=== PATIENT | male | born 1980 | race Caucasian/White ===

== ENCOUNTER 2024-10-24 18:09 | Emergency (ER) | payer BC, OTHER, SELFPAY ==
[2024-10-24 18:10] VITALS: BMI 44.3
[2024-10-24 18:54] VITALS: BP 154/79; PULSE 74; RESP 18; TEMP 36.9; O2SAT 97
--- NOTE | 2024-10-24 19:33 | EDNOTE_ITS ---
ED Wound/Laceration-RME/HPI General Chief Complaint: Hand/Wrist Problems Stated Complaint: I NEED A TETANUS SHOT Time Seen by Provider: 10/24/24 19:03 Arrival date/time: 10/24/24 18:09 43M with history of HTN presents to ED with L hand pain after he accidentally poked himself with a screwdriver. Patient has not had a tetanus shot in the past 5 years. Limitations: no limitations Related Data Previous Rx's ?Medication ?Instructions ?Recorded amoxicillin 875 mg-potassium 1 tab PO BID 5 days #10 t abs 10/24/24 clavulanate 125 mg tablet Allergies Allergy/AdvReac Type Severity Reaction Status Date / Time No Known Allergies Allergy Verified 10/24/24 18:10 Review of Systems Review of Systems Systems Reviewed: All systems reviewed, normal except as documented Constitutional Constitutional: Reports system reviewed and no additional complaints, except as documented, Denies fever(s) and Denies headache(s) ENT Ears, Nose, Mouth, and Throat: Denies disequilibrium and Denies headache(s) Cardiovascular Cardiovascular: Reports system reviewed and no additional complaints, except as documented, Denies chest pain and Denies dyspnea Respiratory Respiratory: Reports system reviewed and no additional complaints, except as documented, Denies cough and Denies dyspnea Gastrointestinal Gastrointestinal: Reports system reviewed and no additional complaints, except as documented, Denies abdominal pain, Denies nausea and Denies vomiting Integumentary/Breasts Skin/Breast: Reports as per HPI and Reports skin pain Neurologic Neurologic: Reports system reviewed and no additional complaints, except as documented, Denies confusion, Denies disequilibrium and Denies headache(s) Psychiatric Psychiatric: Denies confusion Past Medical History Past Medical History CARDIAC: Positive Cardiac Disorders and Hypertension; Negative Congestive Heart Failure RESPIRATORY: Negative Chronic Obstructive Pulmonary Disease (COPD) or Asthma GENITOURINARY: Negative Renal Disease ENDOCRINE: Negative Diabetes Mellitus Type 1 or Diabetes Mellitus Type 2 HEMATOLOGIC: Negative Sickle Cell Disease Social History SMOKING STATUS: Never smoker SUBSTANCE USE: does not use ED Exam General Limitations: Present no limitations General appearance: Present alert and in no apparent distress Head Head exam: Present atraumatic Eye Eye exam: Present normal appearance, PERRL and EOMI ENT ENT exam: Present normal exam, normal oropharynx and mucous membranes moist Neck Neck exam: Present normal inspection, full ROM and trachea midline Chest Chest inspection: Present normal inspection and symmetric chest wall rise Respiratory Respiratory exam: Present normal lung sounds bilaterally Cardiovascular Cardiovascular exam: Present regular rate, normal rhythm and normal heart sounds Abdominal Exam Abdominal exam: Present soft and normal bowel sounds Extremities Exam Extremities exam: Present full ROM Expanded Upper Extremity Exam Hand exam: Present full ROM and other (L puncture wound on palm) Back Exam Back exam: Present normal inspection and full ROM Neurological Exam Neurological exam: Present alert, oriented X3 and CN II-XII intact Psychiatric Psychiatric exam: Present normal affect and normal mood Skin Skin exam: Present warm, dry, intact and normal color Course Quality Measures none Orders Category Date Time Status Wound Care NOW Care 10/24/24 19:03 Active Amoxicillin/Pot Clav 875 [Augmentin 875] Med 10/24/24 19:56 Discontinued 1 tab PO X1 ONE Naproxen [Naprosyn] Med 10/24/24 19:56 Discontinued 500 mg PO X1 ONE Tet,Diphth,Pertuss(Acell)-Tdap [Boostrix Vacc] Med 10/24/24 19:03 Discontinued 0.5 ml IMI .ONCE ONE Vital Signs Vital signs: Vital Signs Temperature 98.4 F 10/24/24 18:54 Pulse Rate 74 10/24/24 18:54 Respiratory Rate 18 10/24/24 18:54 Blood Pressure 154/79 H 10/24/24 18:54 Pulse Oximetry (%) 97 10/24/24 18:54 Oxygen Delivery Method Room Air 10/24/24 18:54 O2 at 97% on RA and WNLs Wound / Laceration MDM Narrative MDM Narrative:: 43M with history of HTN presents to ED with L hand pain after he accidentally poked himself with a screwdriver. Patient has not had a tetanus shot in the past 5 years. Physical exam reveals puncture wound on L palm. ROM intact. Patient is afebrile, calm, and alert. Wound cleaned/irrigated and bandaged. Tdap and ABX prophylaxis given. Patient data External records reviewed:: [facility] previous records Clinical information provided by:: patient Social determinants that could affect healthcare access:: none Patient has the following chronic illnesses:: HTN How is presenting disease/condition affected by chronic disease/condition?: uneffected by Evaluation data The following diagnostics were reviewed and interpreted by me:: other (specify) (none) Lab and/or radiology exams considered but not ordered:: not ordered Interpretation Summary: n/a Medications / Prescriptions Medications or Prescriptions considered but not ordered:: ordered Medication administrations:: Medication Administration History Discontinued Medications Amoxicillin/Clavulanate Potassium (Amoxicillin/Pot Clav 875 Tablet) 1 tab PO X1 ONE Stop: 10/24/24 19:57 Last Admin: 10/24/24 20:03 Dose: 1 tab Documented By: Diphtheria/Tetanus/Acell Pertussis (Diphth,Pertuss(Acell),Tet Vac 0.5 Ml Syr) 0.5 ml IMi .ONCE ONE Stop: 10/24/24 19:04 Last Admin: 10/24/24 20:03 Dose: 0.5 ml Documented By: Naproxen (Naproxen 250 Mg Tablet) 500 mg PO X1 ONE Stop: 10/24/24 19:57 Last Admin: 10/24/24 20:03 Dose: 500 mg Documented By: above Consultations Consultation(s) initiated? (list below): No Diagnosis Wound Differential Diagnosis: laceration, abrasion, avulsion of skin and other (puncture wound) Most likely diagnosis given after review of the tests above:: puncture wound Admission Indicated Admission indicated?: not indicated Admission Request Was there a request for admission?: No Disposition Plan Disposition Plan: Discharge Discharge Attestation Discharge Attestation: The patient and all family members were given an opportunity to ask questions and understood the discharge instructions. Discharge instructions specifically effects, indications for sooner follow up or return to the emergency department, and the expected course of current diagnosis. Patient condition: Stable Discharge Plan Plan Patient Disposition: HOME (Self Care) Disposition Comment: Stable Prescriptions/Referrals Prescriptions/Med Rec: New amoxicillin-pot clavulanate 875-125 mg tablet 1 tab PO BID 5 Days Qty: 10 0RF Problem List Clinical Impression: Puncture wound Patient/Caregiver Discharge Instructions Additional Instructions: Please follow-up with PCP within 24-48 hours and return immediately if symptoms worsen. Print Language: Haitian Stand Alone Forms: Patient Portal Info Letter KATHIA/DEBORA Supervising Physician KATHIA/DEBORA Supervising Physician: Dr. Reyes
[2024-10-24] MEDS: NAPROXEN 250 MG TABLET 500 MG PO (20:03)
[2024-10-24] MEDS: AMOXICILLIN/POT CLAV 875 TABLET 1 TAB PO (20:03)
[2024-10-24] MEDS: DIPHTH,PERTUSS(ACELL),TET VAC 0.5 ML SYR IMi (20:03)
== END 2024-10-24 20:15 | disposition home or self-care (01) ==
LOC: SERX 20:30
PROVIDERS: Emergency Provider Emergency Medicine
DX: S61.432A Puncture wound without foreign body of left hand, initial encounter (principal); I10 Essential (primary) hypertension; Z23 Encounter for immunization; W27.8XXA Contact with other nonpowered hand tool, initial encounter
CPT/HCPCS: 90471; 90715; 99282; A9270